=== PATIENT | female | born 1975 | race Caucasian/White ===

== ENCOUNTER 2016-12-01 19:52 | Emergency (ER) | payer SELFPAY ==
[~2016-12-01] VITALS: Ht 162.6 cm; Wt 77.1 kg
--- NOTE | ~2016-12-01 | CR63 ---
[facility]. [facility] A Service of [facility] RADIOLOGY TEXT RESULTS PATIENT: DION PETERSEN LOCATION: SED : 75 UNIT #: [id number] AGE: [address]: Mike Ruiz MD SEX: F ORDER DR: [id number] [address] [address] [id number] MR#: [id number] Acc #: [id number] NAME: DION PETERSEN : 1975 SEX: F STUDY DATE/TIME: 12/01/2016 20:59 UNIT: SED ROOM: STUDY DESCRIPTION: CR Chest 2 View Attending Physician: Mike Ruiz M.D. Ordering Physician: Mike Ruiz M.D. Primary Care Physician: Dale Fuchs M.D. MEDICAL IMAGING REPORT This report is preliminary unless electronic signature is present. EXAM PA and lateral chest HISTORY Cough for 4 days. FINDINGS PA and lateral examination of the chest upright shows a good expansion of the parenchyma with a normal distribution of the pulmonary vascularity. There is no indication of congestion, effusion, infiltrate, tumor, or nodular density. The pleural reflections and diaphragmatic contours are normal. The cardiac silhouette and mediastinal anatomy is within normal limits. IMPRESSION Normal chest. Dictated by... Michele Mae M.D. THIS IS AN ELECTRONICALLY VERIFIED REPORT Michele Mae M.D. at 12/02/2016 11:48 PM SHAYNAL/shukri TD: 12/02/2016 10:48 JOB #: [id number] MEDICAL IMAGING REPORT Page 1 of 1
[~2016-12-01 19:52] MED LIST: ACETAMINOPHEN PO; AGGRENOX PO; AMBIEN PO; ASPIRIN; ATARAX PO; ATIVAN PO; BENTYL20 MG DOB; COUMADIN PO; DICLOFENAC; DICLOFENAC PO; EFFEXOR PO; EFFEXOR XR PO; EFFEXOR-XR150 MG PO; FLUOXETINE HCL20 M1; INDERAL LA PO; KLONOPIN; KLONOPIN PO; KLONOPIN1 MG PO; LISINOPRIL PO; LORTAB 10-5001 EACH; LORTAB 2.5/5001 TAB PO; LORTAB 7.51 TAB 7.5/ DOB; LORTAB 7.51 TAB 7.5/ PO; MOBIC15 MG PO; NABUMETONE PO; PHENERGAN25 M1 PO; PLAVIX PO; PRILOSEC20 M1 PO; PROPRANOLOL PO; PROZAC PO; TOPAMAX PO; TRAZODONE PO; TYLENOL325 M1 PO; VIT E; WELLBUTRIN SR PO; ZANAFLEX PO; ZANAFLEX4 M1; ZOCOR20 MG PO
[2016-12-01] MEDS ORDERED: NO MEDICATIONS (19:58)
== END 2016-12-01 22:19 | disposition home or self-care (01) ==
LOC: SED 19:52
DX: J06.9 Acute upper respiratory infection, unspecified (principal); I10 Essential (primary) hypertension; Z88.0 Allergy status to penicillin; Z88.8 Allergy status to other drugs, medicaments and biological substances; F17.200 Nicotine dependence, unspecified, uncomplicated
CPT/HCPCS: 71020; 87651; 99283